=== PATIENT | female | born 2000 | race Two or more races ===

== ENCOUNTER 2021-07-04 22:44 | Emergency (ER) | payer OTHER ==
[~2021-07-04] VITALS: Ht 157.5 cm; Wt 56.7 kg
[2021-07-05] MEDS ORDERED: CEPHALEXIN500 MG PO (03:12)
== END 2021-07-05 03:20 ==
LOC: ER 22:44
DX: S06.891A Other specified intracranial injury with loss of consciousness of 30 minutes or less, initial encounter (principal); W50.0XXA Accidental hit or strike by another person, initial encounter; Y93.89 Activity, other specified; Y92.018 Other place in single-family (private) house as the place of occurrence of the external cause; Y99.8 Other external cause status

== ENCOUNTER 2021-07-15 09:00 | Emergency (ER) | payer OTHER ==
[~2021-07-15] VITALS: Ht 157.5 cm; Wt 59.0 kg
[~2021-07-15 09:00] MED LIST: CEPHALEXIN500 MG PO
[2021-07-15] MEDS ORDERED: KETO10TA2 PO (10:29)
[2021-07-15] MEDS ORDERED: VALTREX1000 MG PO (10:29)
[2021-07-15] MEDS ORDERED: MUPIROCIN22 GM TOP (10:29)
== END 2021-07-15 10:33 | disposition home or self-care (01) ==
LOC: ER 09:00
DX: A60.09 Herpesviral infection of other urogenital tract (principal)